=== PATIENT | female | born 1990 | race African-American/Black ===

== ENCOUNTER 2017-04-08 15:48 | Emergency (ER) | payer MEDICAID, OTHER ==
[~2017-04-08] VITALS: Ht 170.2 cm; Wt 50.0 kg
[2017-04-08] MEDS ORDERED: TRAMADOL 50MG TABLET PO ONE (20:15)
[2017-04-08 21:49] VITALS: BP 120/73
== END 2017-04-08 21:54 | disposition home or self-care (01) ==
LOC: ER 16:08
DX: S92.491A Other fracture of right great toe, initial encounter for closed fracture (principal); F12.10 Cannabis abuse, uncomplicated; X58.XXXA Exposure to other specified factors, initial encounter; Y93.89 Activity, other specified; Y92.89 Other specified places as the place of occurrence of the external cause; Y99.8 Other external cause status
CPT/HCPCS: 73660; 99284; Z7610